=== PATIENT | male | born 1975 | race Caucasian/White ===

== ENCOUNTER 2017-10-06 14:23 | Emergency (ER) | payer MEDICAID ==
[2017-10-06 14:36] VITALS: RESP 16; TEMP 98.2; O2SAT 96
--- NOTE | 2017-10-06 15:46 | EDPHY ---
H & P Stated Complaint: back pain last pm /sinus pain . 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 He presents today with 3 complaints. He reports recurrent Hookwarms that he believes he got from his dogs. He was seen at another facility a few weeks ago and given a prescription for albendazole. He took this medication and he is also taking iron. However, he states that he still feels the worms in his hands, lips, pupils, and other areas. He also reports left maxillary sinus pain. He has not had nasal congestion or drainage. He has not had fever. However, he feels that the pain is emanating from his sinus. He does not have a history of previous sinus infection. In addition he reports low back and flank pain that woke him at 2: 30 a.m. this morning. The pain seemed to be bilateral but was worse on the right side. It lasted over an hour. It was severe. He found that he was twisting about to find a position of comfort and ended up on his hands and knees in order to try to relieve the pain. There was no radiation. The pain resolved spontaneously and has not returned. No leg numbness or weakness. No dysuria but occasional difficulty initiating urination. REVIEW OF SYSTEMS: A ten point review of systems was performed and is negative with the exception of the items mentioned in the HPI. 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 They live in [place]. He is a former smoker. He is taking Suboxone. 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 General Appearance: Alert. Vital signs reviewed. Heart rate 49 at triage. Eyes: No conjunctival injection, no discharge. Anicteric. ENT, Mouth: Mucous membranes are moist, ulcerated area left hard palate, no other lesions/ulcerations/erythema/swelling. Neck: Mild anterior cervical lymphadenopathy on left, supple. Respiratory: Lungs are clear to auscultation; no wheezes, rales, or rhonchi. Cardiovascular: Regular rate and rhythm; no murmur, rub, or gallop. Gastrointestinal: Abdomen is soft and nontender, no masses or organomegaly, bowel sounds normal. Skin: Warm and dry, no rashes on exposed skin, normal color. Scattered scab someone chin. No excoriations. No serpiginous tracts. Back: Nontender to palpation over the thoracolumbar spine. No CVAT. Extremities: No lower extremity edema, no calf tenderness or swelling. Neurological: Alert and oriented. Moving all four extremities easily and equally. Cranial nerves II through XII are examined and are intact (visual acuity not tested). Strength is 5 over 5 bilaterally with testing of major motor groups LEs. Sensation is intact to light touch over all 4 extremities. Gait is normal. Psychiatric: Minimal eye contact. 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 Denies surg. - Social History Smoking Status: Former smoker Constitutional: Initial Vital Signs Temperature (C) 36.8 C 10/06/17 14:30 Heart Rate 49 L 10/06/17 14:30 Respiratory Rate 16 10/06/17 14:30 Blood Pressure 105/66 10/06/17 14:30 O2 Sat (%) 96 10/06/17 14:30 O2 Delivery Mode Room Air Allergies/Adverse Reactions: cephalexin Allergy (Verified 10/06/17 14:37) Penicillins Allergy (Verified 10/06/17 14:37) Home Medications: Medication Instructions Recorded Suboxone 8 mg-2 mg SL Film 10/06/17 Medical Decision Making ED Course/Re-evaluation: 42-year-old with an unclear autoimmune disorder, by his report. I have no other details about this. He is here with multiple complaints. He reports right low back/flank pain earlier this morning that has resolved. By his description, this sounds like ureterolithiasis. I do not recommend any further testing to establish a diagnosis at this point in time. I gave him some information about kidney stones. I recommended ibuprofen should that pain return. His 2nd complaint is of sinus pain. He does have some maxillary sinus tenderness on the left and an enlarged cervical lymph node on the left. He has not been febrile. I do not recommend antibiotics for sinusitis, as this began less than 24 hr ago. I have recommended a Neti pot and [id number] pain medication. No evidence of influenza or other respiratory infection. His 3rd complaint is of recurrent hookworms after taking albendazole. He initially reported that he had been seen at [facility] and stated that this was where the albendazole was prescribed. However, he told me that when he returned to [facility] they had no record of his treatment. I contacted the pharmacy and learned that the albendazole was prescribed by a Dr. Ole Joel who works at [facility]. The prescription was filled on September 22. I spoke with Dr. Quesada of Infectious Disease and she states that albendazole treatment rarely fails. He requested another prescription but I have declined. I explained him that I do not find evidence of Hookworm infection. He did not give a stool sample for diagnosis when the albendazole prescription was written. He was given a container here to provide a stool sample and instructions as to how to do that. An order has been written so that he can deliver the sample to [facility]. As I explained to him, I am not at all convinced that he has a Hookworm infection. 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 He does not live in [place] and is trying to establish care with a natural path. I provided him with a referral to a PCP and strongly encouraged him to arrange care with a PCP. - Data Points Medications Given: Discontinued Medications Acetaminophen (Tylenol) 650 mg PO EDNOW ONE Stop: 10/06/17 16:07 Last Admin: 10/06/17 16:29 Dose: 650 mg Departure - Departure Disposition: Home, Routine, Self-Care Clinical Impression: Sinusitis Qualifiers: Sinusitis location: maxillary Chronicity: acute Recurrence: non-recurrent Qualified Code(s): J01.00 - Acute maxillary sinusitis, unspecified Condition: Good Instructions: Kidney Stones (ED), Sinusitis (ED) Additional Instructions: Adult Pain & Fever Control: We recommend Acetaminophen (Tylenol) and Ibuprofen (Motrin,Advil) for pain and fever control. When fever is high or pain severe, both drugs can be used at the same time, but at different intervals. Please note the time differences. Your dose is: Acetaminophen 650mg every 4 to 6 hours Ibuprofen 400mg every 6 hours with food OR Naproxen Sodium (Aleve) mg every 12 hours. Note: do not take Acetaminophen with Hydrocodone (Vicodin, Lortab) or Oycodone (Percocet). These medications also contain Acetaminophen. No more than 3000mg of Acetaminophen should be taken in 24 hours (for an adult). I recommend taking acetaminophen and ibuprofen, alternating them, to treat you sinus pain. Use the Neti pot. As we discussed, I do not recommend antibiotics at this point. I am giving you some information about kidney stones, in case that is what caused her pain earlier today. If you have severe unremitting back pain again I recommend that you be seen immediately. I am referring you to a primary care physician. It is fine if you want to follow up with the law tutor. If you are able to produce a stool sample to be tested for hookworms, you should take the sample to [facility] within 2 hours. Take the sample to the triage desk in front of the emergency department and explained to them that the testing was ordered through the emergency department at [facility] in [place]. They should be able to take care of the sample from there. Referrals: Steven Do MD [Medical Doctor] - As per Instructions
[2017-10-06] MEDS ORDERED: ACETAMINOPHEN 325 MG TAB PO ONE (16:06)
[2017-10-06 16:42] VITALS: BP 110/60; PULSE 50
== END 2017-10-06 16:40 | disposition home or self-care (01) ==
LOC: CED 14:23
DX: J01.00 Acute maxillary sinusitis, unspecified (principal); Z87.891 Personal history of nicotine dependence